=== PATIENT | female | born 1945 | race Caucasian/White ===

== ENCOUNTER → 2020-02-02 09:37 | Outpatient (CLI) | payer MEDICARE, SELFPAY ==
[2020-02-02 12:19] LABS: BUN Creatinine Ratio 31.8 (6-22); Blood Urea Nitrogen 21 mg/dL (7-17); Carbon Dioxide 30 mmol/L (22-32); Chloride 100 mmol/L (98-107); Cholesterol 168 mg/dL (140-199); Estimated Glomerular Filt Rate > 60.0 mL/min (>60); Glucose 85 mg/dL (80-110); HDL Cholesterol 45 mg/dL (40-60); HEMOLYSIS < 15 (0-50); LDL Cholesterol Calculated 109 mg/dL (<100); Potassium 4.2 mmol/L (3.4-5.1); Sodium 135 mmol/L (137-145); Triglycerides 70 mg/dL (35-150)
== END ==
PROVIDERS: PCP Internal Medicine; Referring Provider Internal Medicine; Visit Provider Internal Medicine
DX: I10 Essential (primary) hypertension (principal); Z13.220 Encounter for screening for lipoid disorders
CPT/HCPCS: 36415; 80048; 80061

== ENCOUNTER 2024-10-08 13:35 | Emergency (ER) | payer MEDICARE, SELFPAY ==
[2024-10-08 13:40] VITALS: BP 203/107; PULSE 79; RESP 18; TEMP 36.8; O2SAT 99; BMI 23.1
--- NOTE | 2024-10-08 16:07 | ED_ITS ---
HPI - Head Injury General Chief complaint: Head Injury Stated complaint: Head Injury t-1, Laceration Over R Eye Time Seen by Provider: 10/08/24 16:07 Source: patient, RN notes reviewed and old records reviewed Mode of arrival: Ambulatory Limitations: no limitations History of Present Illness HPI Narrative: 78-year-old female comes in with complaint of head injury yesterday. Hit her head on the edge of a cabinet has a laceration to the right forehead yesterday evening. Patient has been on both hit their head on this cabinet. He states the hinges do not quite a lines with sometimes the door sort of opens patient did not quite realize it was open and hit her forehead. She states it is little bit painful. She went to [place] emergency department but ultimately returned without being seen. She presents here today because there is a laceration that appears to need repair. She denies severe headaches. No neck pain, no vision changes. No nausea or vomiting or other symptoms. She was unsure of her last tetanus. She states no blood thinners or anticoagulants. Patient notes her blood pressure has been intermittently elevated. She does note that she has not had her daily tramadol which she takes for chronic shoulder pain. Related Data Home Medications Medication Instructions Recorded Confirmed IBUPROFEN (#MOTRIN) 800 mg PO TIDP ##0 01/07/11 Allergies Allergy/AdvReac Type Severity Reaction Status Date / Time Sulfa (Sulfonamide Allergy Mild DIARRHEA Verified 10/08/24 13:46 Antibiotics) [SULFA (SULFONAMIDE ANTIBIOTICS)] Review of Systems Review of Systems ROS Unobtainable: All systems reviewed & are unremarkable except as noted in HPI and below Patient History Surgical History Status post hysterectomy Status post cholecystectomy Family History Mother Arthritis Asthma Social History Smoking Status: Never smoker Smoking Status: Never smoker Exam Narrative Exam Narrative: GEN: Patient appears in mild distress. HEAD: Patient has a 2.1 linear laceration over the right forehead, does gape into the subcutaneous tissue, no galea exposure, no raccoon/Donato sign. NECK: Nontender, painless range of motion, trachea midline Negative Nexus criteria, no midline line tenderness, distracting injury, altered mental status, neuro deficit, recent EtOH. EYES: PERRLA, EOMI ENT: External inspection normal, trachea is midline, TM's are normal no hemotypanum, Nares are clear, no septal hematoma, no dental or oral injury, airway is normal and with normal occlusion, No bony tenderness RESP: Chest is nontender and has symmetric movement, no ecchymosis, breath sounds are normal no crackles, wheezes or rales CVS: Heart sounds are normal, no murmur noted, No JVD. ABG/GI: Nontender, soft, normal bowel sounds, no distention, no organomegaly. NEURO: Oriented AOx3, neuro is grossly intact, sensation and motor is normal all 4 extremities moving, cranial nerves II through XII are intact, GCS is 15 PSYCH: Normal mood and affect SKIN: Intact, warm and dry, no crepitus and without decubitus BACK: No CVA tenderness, no vertebral tenderness, no step-off's, no crepitus EXT: Atraumatic, normal range of motion, 5/5 muscle strength. Initial Vital Signs Initial Vital Signs: Vital Signs Temperature 98.2 F 10/08/24 13:40 Pulse Rate 79 10/08/24 13:40 Respiratory Rate 18 10/08/24 13:40 Blood Pressure 203/107 H 10/08/24 13:40 Pulse Oximetry 99 10/08/24 13:40 Oxygen Delivery Method Room Air 10/08/24 13:40 Procedures Laceration Repair Laceration 1: Site: face (Left forehead) Side (If applicable): left Size (cm): 2.1 Description: linear and clean Depth: simple, single layer Local Anesthetic: lidocaine 2% Amount of anesthesia used (mL): 6 Pre-repair: wound explored, irrigated extensively, deep structures intact and cleansed with chlorhexadine Skin layer closed with: vicryl Skin layer suture size: 5-0 Number of sutures: 5 Technique: simple, interrupted Scores GCS [place] coma scale eye opening: Spontaneous [place] coma scale verbal response: Orientated [place] coma scale motor response: Obey commands [place] coma scale total score: 15 Nexus Score for C-Spine Focal Neurologic deficit present: No Midline spinal tenderness present: No Altered level of conciousness present: No Intoxication present: No Distracting Injury Present: No Nexus Criteria for C-spine: 0 Course Orders Ordered: Discontinued Medications Diphtheria/Tetanus/Acell Pertussis (Tet,Diph,Pertuss(Acell),Vac/Pf 0.5 Ml Syrin ge) 0.5 ml IM .ONCE ONE Stop: 10/08/24 16:47 Last Admin: 10/08/24 17:23 Dose: 0.5 ml Documented By: JHONY Lidocaine HCl (Lidocaine 2% Inj Sdv 5ml) 5 ml INJ NOW ONE Stop: 10/08/24 16:36 Last Admin: 10/08/24 17:39 Dose: 5 ml Documented By: JHONY Tramadol HCl (Tramadol 50 Mg Tablet) 25 mg PO NOW ONE Stop: 10/08/24 16:47 Last Admin: 10/08/24 17:25 Dose: 25 mg Documented By: JHONY Vital Signs Vital signs: Vital Signs - 8 hr 10/08/24 13:40 10/08/24 16:16 10/08/24 17:29 Temperature 98.2 F Pulse Rate 79 78 82 Respiratory Rate 18 16 Blood Pressure 203/107 H 229/111 H Pulse Oximetry 99 97 94 Oxygen Delivery Method Room Air Room Air 10/08/24 17:29 10/08/24 17:30 10/08/24 17:31 Temperature Pulse Rate 81 Respiratory Rate Blood Pressure 236/127 H 256/119 H Pulse Oximetry 95 Oxygen Delivery Method MDM - Head Injury MDM Narrative Medical decision making narrative: 78-year-old female who hit her head on a cabinet has a laceration. It is proximally 12 hours old. Patient was unsure her tetanus. She was hypertensive we discussed head CT but her mechanism seems fairly low. Patient is not anticoagulated. She politely defers although it was offered. She notes that she has not had her once daily narcotic pain medication and she feels this might be contributing as well as her shoulders are very uncomfortable sitting in the gurney. We did discuss return precautions. Laceration was sutured. Patient's tetanus was updated. Discussed return precautions. Discharge Plan Departure Patient Disposition: Home Clinical Impression: Forehead laceration Instructions: DI for Laceration Repair -- Simple Activity Restrictions/Additional Instructions: Your sutures are absorbable these do not have to be removed. Wound Care: Keep wound(s) clean and dry. Wash daily with soap and water only. Do not use over the counter products (alcohol or peroxide)on the wounds unless instructed by a physician. Avoid Neosporin or other topical antibiotics as they will breakdown the sutures. You can use sunscreen and Aquaphor over the area once it is healed to help prevent scarring. I would also recommend clothing that protect her skin from the sun to help prevent pigment changes and scarring as well. If wound condition worsens (increased/expanding redness, developing fluid blisters, or worsening pain), either contact your doctor for an urgent re- assessment , or return to the Emergency Department. Return if fever greater than 100.4 Fahrenheit, increased swelling, increasing pain or worsening symptoms such as increased discharge or spreading redness, severe headaches, vomiting, passing out, difficulty with movement or ambulation, mental status changes or other new or concerning changes. Prescriptions: No Action IBUPROFEN (#MOTRIN) 800 mg PO TIDP Qty: 0 Stand Alone Forms: Patient Portal/API/Survey
[2024-10-08 16:16] VITALS: BP 229/111; PULSE 78; RESP 16; O2SAT 97
[2024-10-08] MEDS: TET,DIPH,PERTUSS(ACELL),VAC/PF 0.5 ML SYRINGE IM (17:23)
[2024-10-08] MEDS: TRAMADOL 50 MG TABLET 25 MG PO (17:25)
[2024-10-08 17:29] VITALS: BP 236/127; PULSE 82; O2SAT 94
[2024-10-08 17:30] VITALS: PULSE 81; O2SAT 95
[2024-10-08 17:31] VITALS: BP 256/119
--- NOTE | 2024-10-08 17:33 | PC.NURSE ---
Assisting with DC. noted to have consistently high blood pressure. Dr Zavala is aware. Advised she spoke with pt and they mutually agreed to not do a head CT or BP lowering medications. pt declined. Asymptomatic. advised to return if having symptoms.
[2024-10-08] MEDS: LIDOCAINE 2% INJ SDV 5ML 5 ML INJ (17:39)
== END 2024-10-08 17:35 | disposition home or self-care (01) ==
PROVIDERS: Emergency Provider Emergency Medicine
DX: S01.81XA Laceration without foreign body of other part of head, initial encounter (principal); W22.8XXA Striking against or struck by other objects, initial encounter; Z23 Encounter for immunization
CPT/HCPCS: 12011; 90471; 99284; 90715